=== PATIENT | male | born 1945 | race Caucasian/White ===

== ENCOUNTER 2020-03-24 08:52 | Inpatient (IN) | payer OTHER ==
[~2020-03-24] VITALS: Ht 187.9 cm; Wt 101.0 kg
--- NOTE | 2020-03-24 09:00 | NUR ---
PATIENT GIVES POOR PMH
[2020-03-24 09:17] LABS: BASOPHILS % (AUTO) 1 % (0-10); EOSINOPHILS # (AUTO) 0.1 10^3/uL (0.0-0.3); EOSINOPHILS % (AUTO) 2 % (0-10); HEMATOCRIT 45 % (40-54); HEMOGLOBIN 14.6 G/DL (13.3-17.7); LYMPHOCYTES # (AUTO) 0.9 X 10^3 (1.0-4.0); LYMPHOCYTES % (AUTO) 20 % (12-44); MEAN CORPUSCULAR HEMOGLOBIN 32 PG (25-34); MEAN CORPUSCULAR HGB CONC 33 G/DL (32-36); MEAN CORPUSCULAR VOLUME 98 FL (80-99); MONOCYTES # (AUTO) 0.4 X 10^3 (0.0-1.0); MONOCYTES % (AUTO) 9 % (0-12); NEUTROPHILS # (AUTO) 2.9 X 10^3 (1.8-7.8); NEUTROPHILS % (AUTO) 68 % (42-75); PLATELET COUNT 128 10^3/uL (130-400); RED CELL DISTRIBUTION WIDTH 13.6 % (10.0-14.5); WHITE BLOOD COUNT 4.2 10^3/uL (4.3-11.0)
--- OUTSIDE RECORDS SUMMARY | 2020-03-24 09:19 | XMS REPORT | CCD ---
Author Author BOBY BRANNON Organization Unknown Address [address] [place] [address] Care Team Providers Care International Marketing Intern Name Role Phone ALLENCULLINS PHYS, RONNY ER Attphys ALLENCULLINS PHYS, RONNY ER Prisurg Allergies Unknown or Not Available. Active Medications Unknown or Not Available. Problems Unknown or Not Available. Procedures Procedure Code Procedure Type Date CX CHEST [address] 02/21/2017 UA ROUTINE C&S IF IND 291447949 SNOMED CT 10/[address] 02/21/2017 SED RATE 783391961 SNOMED CT 02/21/2017 C REACTIVE PROTEIN 99269824 SNOMED CT 017 COMPREHENSIVE METABOLIC PANEL 481055887 SNOMED CT 02/21/2017 CBC W/ AUTO DIFF (RFLX MAN DIFF IF IND) 4450502 [facility] 02/21/2017 ^UA AUTO DIPSTICK ONLY 530686570 SNOMED CT 10/2016 ^CBC W/AUTO DIFF 4803531 SNOMED CT 7 Results COMPREHENSIVE METABOLIC PANEL - Collect Date/Time: 02/21/2017 15:30 Test Name Code Test Result Test Units Marielle t Ref Range GLUCOSE 2345-7 119 MG/DL L=70 H=1 00 SODIUM 2951-2 138 MEQ/L L=135 H=14 8 POTASSIUM 2823-3 4.0 MEQ/L L=3.5 H =5.3 CHLORIDE 2075-0 103 MEQ/L L=96 H= 110 CO2 2028-9 26 MEQ/L L=22 H=29 BUN 3094-0 16 MG/DL L=8 H=22 CREATININE 2160-0 1.1 MG/DL L=0.6 H=1.6 SGOT/AST 1920-8 16 IU/L L=10 H= 40 SGPT/ALT 1742-6 16 IU/L L=8 H= 54 ALK PHOS 6768-6 86 IU/L L=35 H= 115 TOTAL PROTEIN 2885-2 6.7 G/DL L=5.5 H=8.5 ALBUMIN 1751-7 3.7 G/DL L=3.1 H=5 .4 TOTAL BILI 1975-2 1.1 MG/DL L=0.0 H=1.5 CALCIUM 22090-1 8.7 MG/DL L=8.2 H= 10.6 AGE 71 yrs GFR NonAA 66 GFR AA 80 eGFR >60 N/A eGFR AA* >60 N/A CBC W/ AUTO DIFF (RFLX MAN DIFF IF IND) - Collect Date/Time: 02/21/2017 15:30 Test Name Code Test Result Test Units Marielle t Ref Range WBC 94803-5 6.0 TH/CMM L=4.5 H=1 0.8 RBC 789-8 4.62 ML/CMM L=4.70 H=6. 10 HGB 718-7 14.3 G/DL L=14.0 H=18 .0 HCT 4544-3 44.6 % L=42.0 H=52 .0 MCV 97 FL L=81 H=99 MCH 31.0 PG L=27.0 H=33 .0 MCHC 32.1 G/DL L=31.0 H=36 .0 RDW SD 50 FL L=36 H=50 RDW CV 14.2 % L=0.0 H=14 .8 MPV 9.3 FL L=9.3 H=12 .5 PLT 777-3 118 TH/CMM L=130 H=44 0 NRBC# 0.00 TH/CMM L=0.00 H=0. 00 NRBC% 0.0 /100WBC L=0.0 H=2 .0 %NEUT 77.5 % %LYMP 12.5 % %MONO 9.0 % %EOS 0.5 % %BASO 0.3 % #NEUT 4.66 TH/CMM L=2.10 H=8. 20 #LYMP 0.75 TH/CMM L=0.90 H=5. 20 #MONO 0.54 TH/CMM L=0.16 H=1. 00 #EOS 0.03 TH/CMM L=0.00 H=0. 80 #BASO 0.02 TH/CMM L=0.00 H=0. 20 MANUAL DIFF NOT IND N/A SED RATE - Collect Date/Time: 02/21/2017 15:30 Test Name Code Test Result Test Units Marielle t Ref Range SEDRATE 4537-7 35 MM/HR L=0 H=2 0 PROTIME - Collect Date/Time: 02/21/2017 15:30 Test Name Code Test Result Test Units Marielle t Ref Range PROTIME 5964-2 21.8 SEC L=9.9 H=1 1.9 INR 28958-2 1.9 UA ROUTINE C&S IF IND - Collect Date/Rogelio e: 02/21/2017 16:10 Test Name Code Test Result Test Units Marielle t Ref Range COLOR YELLOW N/A NL: YELLOW APPEARANCE CLEAR N/A NL: CLEAR SPEC GRAV 1.010 N/A NL: 1.002 - 1.022 pH 5.5 N/A NL: 5 - 9 PROTEIN NEGATIVE N/A NL: NEGATIVE mg/dl GLUCOSE NEGATIVE N/A NL: NEGATIVE mg/dl KETONE NEGATIVE N/A NL: NEGATIVE mg/dl BILIRUBIN NEGATIVE N/A NL: NEGATI VE BLOOD NEGATIVE N/A NL: NEGATIVE NITRITE NEGATIVE N/A NL: NEGATIVE LEUK SCREEN NEGATIVE N/A NL: NEGA TIVE MICRO INDICATED? NOT INDICATED N/A BNP - Collect Date/Time: 02/21/2017 15:3 0 Test Name Code Test Result Test Units Marielle t Ref Range BNP 14908-6 57 PG/ML L=0 H=1 00 C REACTIVE PROTEIN - Collect Date/Time: 02/21/2017 15:30 Test Name Code Test Result Test Units Marielle t Ref Range C REACTIVE PROTEIN 1988-5 11.1 MG/DL L=0 .0 H=1.0 Function Status Unknown or Not Available. History of Immunizations Unknown or Not Available. Plan of Treatment Unknown or Not Available. Social History Smoking Status Code Start Date End Date Never smoker [id number] Vital Signs Unknown or Not Available. Function Status Unknown or Not Available. Goals Unknown or Not Available. ASSESSMENTS Unknown or Not Available. Health Concerns Section Unknown or Not Available.
--- OUTSIDE RECORDS SUMMARY | 2020-03-24 09:19 | XMS REPORT ---
Author Author Kodi Braun [facility] Address [address] [place], [place] [address] Care Team Providers Care Tree Thinner Name Role Phone Jocelin Braun PCP Allergies and Adverse Reactions Name Reaction Notes pantoprazole budesonide Plan of Treatment Not available. Medications Active Name Start Date Estimated Completion Date SIG Co mments Flomax 0.4 mg oral capsule take 1 capsule (0.4 mg) by oral route once daily 1/2 hour following the same meal each day acyclovir 400 mg oral tablet keegan e 1 tablet (400 mg) by oral route 2 times per day warfarin 7.5 mg oral tablet take 1 tablet (7.5 mg) by oral route once daily lorazepam 0.5 mg oral tablet keegan e 1 tablet (0.5 mg) by oral route 2 times per day as needed mirtazapine 45 mg oral tablet ta ke 1 tablet (45 mg) by oral route once daily before bedtime Anoro Ellipta 62.5-25 mcg/actuation inhalation blister with jeet ce inhale 1 puff by inhalation route once daily at the same time each day ipratropium-albuterol 0.5 mg-3 mg(2.5 mg base)/3 mL inhalation solution for nebulization 02/11/2020 07/10/2020 inhale 3 milliliters by nebulization route 4 times per day for 30 days Discontinued Name Start Date Discontinued Date SIG Comments amitriptyline 10 mg oral tablet 02/11/2020 take 1 tablet (10 mg) by oral route once daily at bedtime albuterol sulfate 0.63 mg/3 mL inhalation solution for nebulizat ion 02/11/2020 use in nebulizer as directed 4 times a day Problem List Description Status Onset COPD (chronic obstructive pulmonary disease) Active 02/11/2020 BPH (benign prostatic hyperplasia) Active 2019 Pulmonary emboli Active 02/11/2020 Herpes Active 02/11/2020 Anxiety Active 02/11/2020 Unintended weight gain Active 02/11/2020 Preventative health care Active 02/11/2020 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 Vital Signs Date Time BP-Sys(mm[Hg] BP-Caitlyn(mm[Hg]) HR(bpm) RR(rpm) Temp WT HT HC BMI BSA BMI Percentile O2 Sat(%) 02/11/2020 12:54:00 PM 138 mm[Hg] 80 mm[Hg] 92 {beats}/min 18 rpm 98.1 F 220 lbs 74 in 28.246 kg/m2 2.2826 m2 93 % 10/03/2019 3:17:00 PM 130 mm[Hg] 70 mm[Hg] 67 {beats}/min 24 rpm 97.9 F 209 lbs 74 in 26.83 kg/m2 2.22 m2 95 % Social History Name Description Comments Tobacco Former smoker Oxygen History of Procedures Date Ordered Description Order Status 10/03/2019 12:00 AM URINALYSIS AUTO W/SCOPE Reviewed 10/23/2019 12:00 AM CYSTOSCOPY Reviewed 02/11/2020 1:05 PM FALL RISK ASSESSMENT DOCD Reviewed 02/11/2020 1:05 PM SCREEN DEPRESSION PERFORMED Reviewed Results Summary Date and Description Results 10/03/2019 5:18 PM COLOR Light-Yellow CLARITY C lear SPEC GRAV 1.025 pH 5.5 PROTEIN Negative GLUCOSE Normal KETONE Negative BILIRUBIN Negative BLOOD Negative NITRITE Negative LEUK SCREEN Negative RBC/HPF RARE CULT SET UP? NO 02/11/2020 1:05 PM Falls in last 6 months? No U nsteady or worry about falling? No Fall Risk Assessment Not At Risk During the past month, have you been feeling depressed? No During the past month, have you lost interest in usual activity? No History Of Immunizations Not available. History of Past Illness Name Date of Onset Comments COPD PE (pulmonary embolism) Pulmonary venous thrombosis Dysphagia Deviated Nasal Septum Umbilical hernia Basal cell carcinoma Herpes Cellulitis Anxiety Insomnia Jaundice Collapsed lung COPD (chronic obstructive pulmonary disease) 02/11/2020 BPH (benign prostatic hyperplasia) 02/11/2020 Pulmonary emboli 02/11/2020 Herpes 02/11/2020 Anxiety 02/11/2020 Unintended weight gain 02/11/2020 Preventative health care 02/11/2020 End stage COPD 02/11/2020 Burning with urination Oct 03 2019 3:19PM Splitting, urinary stream Oct 03 2019 3:19PM Dehydration Oct 03 2019 3:19PM Dysuria Oct 23 2019 2:07PM S/P TURP Oct 23 2019 2:07PM COPD (chronic obstructive pulmonary disease) Feb 11 2020 1: 05PM BPH (benign prostatic hyperplasia) Feb 11 2020 1:05PM Pulmonary emboli Feb 11 2020 1:05PM Herpes Feb 11 2020 1:05PM Anxiety Feb 11 2020 1:05PM Unintended weight gain Feb 11 2020 1:05PM Preventative health care Feb 11 2020 1:05PM End stage COPD Feb 11 2020 1:05PM Payers Insurance Name Company Name Plan Name Plan Number Policy Number [place] Group Number Start Date Aetna Aetna [id number] N/A Veterans Administration Veterans Administration [id number] N/A Medicare Part B Medicare Secondary [id number] N/A Medicare Part B Medicare Of [place] [id number] N/A WPS - VAP[employer] - [place] WPS VACAA [id number] N/A History of Encounters Visit Date Visit Type Provider 02/11/2020 Office visit Jocelin Braun MD 10/23/2019 Procedures Saeid Sosa MD 10/03/2019 Office visit Seaid Sosa MD 06/24/2019 Hospital Junito Aragon MD 05/14/2019 Hospital Junito Aragon MD 07/22/2018 Hospital Junito Aragon MD
--- OUTSIDE RECORDS SUMMARY | 2020-03-24 09:20 | XMS REPORT ---
Author Author Kodi Braun [facility] Address [address] [place], [place] [address] Care Team Providers Care Rate Inserter Name Role Phone Jocelin Braun PCP Allergies [...] Active 02/11/2020 Preventative health care Active 02/11/2020 Vital Signs Date Time BP-Sys(mm[Hg] [...] weight gain 02/11/2020 Preventative health care 02/11/2020 Burning with urination Oct 03 2019 [...] Preventative health care Feb 11 2020 1:05PM Payers Insurance Name Company Name Plan Name Plan Number Policy Number [place] Group Number Start Date Aetna Aetna [id number] N/A Veterans Administration Veterans Administration [id number] N/A Medicare Part B Medicare Secondary [id number] N/A Medicare Part B Medicare Of [place] [id number] N/A WPS - VAPCCC - [place]s Choice WPS VACAA [id number] N/A History of Encounters Visit Date Visit Type Provider 02/11/2020 Office visit Jocelin Braun MD 10/23/2019 Procedures Saeid Sosa MD 10/03/2019 Office visit Saeid Sosa MD 06/24/2019 Hospital Junito Aragon MD 05/14/2019 Hospital Junito Aragon MD 07/22/2018 Hospital Junito Aragon MD
--- OUTSIDE RECORDS SUMMARY | 2020-03-24 09:20 | XMS REPORT ---
Author Author Kodi Braun [facility] Address [address] [place], [place] [address] Care Team Providers Care Forge Helper Name Role Phone Jocelin Braun PCP Allergies [...] by oral route once daily before bedtime albuterol sulfate 0.63 mg/3 mL inhalation solution for nebulizat ion use in nebulizer as directed 4 times a day Anoro Ellipta 62.5-25 mcg/actuation inhalation blister with jeet ce inhale 1 puff by inhalation route once daily at the same time each day Discontinued Name Start Date Discontinued Date SIG Comments amitriptyline 10 mg oral tablet 02/11/2020 take 1 tablet (10 mg) by oral route once daily at bedtime Problem List Not available. Vital Signs Date Time BP-Sys(mm[Hg] BP-Caitlyn(mm[Hg]) HR(bpm) [...] Negative RBC/HPF RARE CULT SET UP? NO History Of Immunizations Not available. History of Past Illness Name Date of Onset Comments COPD PE (pulmonary embolism) Pulmonary venous thrombosis Dysphagia Deviated Nasal Septum Umbilical hernia Basal cell carcinoma Herpes Cellulitis Anxiety Insomnia Jaundice Collapsed lung Burning with urination Oct 03 2019 3:19PM Splitting, urinary stream Oct 03 2019 3:19PM Dehydration Oct 03 2019 3:19PM Dysuria Oct 23 2019 2:07PM S/P TURP Oct 23 2019 2:07PM Payers Insurance Name Company Name Plan Name Plan Number Policy Number [place] Group Number Start Date Aetna Aetna [id number] N/A Veterans Administration Veterans Administration [id number] N/A Medicare Part B Medicare Secondary [id number] N/A Medicare Part B Medicare Of [place] [id number] N/A WPS - VAPCCC - [place]'s Choice WPS VACAA [id number] N/A History of Encounters Visit Date Visit Type Provider 02/11/2020 Office visit Jocelin Braun MD 10/23/2019 Procedures Saeid Sosa MD 10/03/2019 Office visit Saeid Sosa MD 06/24/2019 Hospital Junito Aragon MD 05/14/2019 Hospital Junito Aragon MD 07/22/2018 Hospital Junito Aragon MD
--- OUTSIDE RECORDS SUMMARY | 2020-03-24 09:20 | XMS REPORT ---
Author Author Kodi Sosa Organization [facility] Address [address] [place], [place] [address] Care Team Providers Care Composing Room Machinist Name Role Phone Saeid Sosa PCP Allergies and Adverse Reactions Name Reaction [...] route 2 times per day as needed amitriptyline 10 mg oral tablet take 1 tablet (10 mg) by oral route once daily at bedtime Problem List Not available. Vital Signs Date Time BP-Sys(mm[Hg] BP-Caitlyn(mm[Hg]) HR(bpm) RR(rpm) Temp WT HT HC BMI BSA BMI Percentile O2 Sat(%) 10/03/2019 3:17:00 PM 130 mm[Hg] 70 mm[Hg] 67 {beats}/min 24 rpm 97.9 F 209 lbs 74 in 26.8337 kg/m2 2.2248 m2 95 % Social History Name Description Comments Tobacco Former smoker Oxygen History of Procedures Date Ordered Description Order Status 10/03/2019 12:00 AM URINALYSIS AUTO W/SCOPE Reviewed 10/23/2019 12:00 AM CYSTOSCOPY Reviewed Results Summary Date and Description Results [...] venous thrombosis Dysphagia Deviated Nasal Septum Umbilical Hernia Basal cell carcinoma Herpes Cellulitis Anxiety Insomnia Jaundice Burning with urination Oct 03 2019 3:19PM Splitting, urinary stream Oct 03 2019 3:19PM Dehydration Oct 03 2019 3:19PM Dysuria Oct 23 2019 2:07PM S/P TURP Oct 23 2019 2:07PM Payers Insurance Name Company Name Plan Name Plan Number Policy Number [place] Group Number Start Date WPS - VAPCCC - [place]'s Choice WPS VACAA [id number] N/A Veterans Administration Veterans Administration 35 [id number] N/A Medicare Part B Medicare Secondary [id number] N/A Medicare Part B Medicare Of [place] [id number] N/A History of Encounters Visit Date Visit Type Provider 10/23/2019 Procedures Saeid Sosa MD 10/03/2019 Office visit Saeid Sosa MD 06/24/2019 Hospital Junito Aragon MD 05/14/2019 Hospital Junito Aragon MD 07/22/2018 Hospital Junito Aragon MD
[2020-03-24 09:26] LABS: ALBUMIN 3.7 GM/DL (3.2-4.5); CHLORIDE 105 MMOL/L (98-107); POTASSIUM 4.9 MMOL/L (3.6-5.0); SODIUM 141 MMOL/L (135-145)
[2020-03-24 09:28] LABS: CALCIUM 8.7 MG/DL (8.5-10.1)
[2020-03-24 09:29] LABS: GLUCOSE 98 MG/DL (70-105); INR 1.6 (0.8-1.4); PROTHROMBIN TIME PATIENT 19.4 SEC (12.2-14.7)
[2020-03-24 09:30] LABS: CARBON DIOXIDE 28 MMOL/L (21-32)
[2020-03-24 09:31] LABS: BILIRUBIN,TOTAL 0.7 MG/DL (0.1-1.0)
[2020-03-24 09:32] LABS: ALKALINE PHOSPHATASE 99 U/L (40-136); CREATININE SERUM 1.12 MG/DL (0.60-1.30); GFR ESTIMATED > 60
[2020-03-24 09:33] LABS: BUN/CREATININE RATIO 15
[2020-03-24 09:35] LABS: BILIRUBIN,URINE NEGATIVE (NEGATIVE); CLARITY,URINE CLEAR; COLOR,URINE YELLOW; GLUCOSE, URINE (UA) NEGATIVE (NEGATIVE); KETONES,URINE NEGATIVE (NEGATIVE); LEUKOCYTE ESTERASE ,URINE NEGATIVE (NEGATIVE); NITRITE,URINE NEGATIVE (NEGATIVE); PROTEIN,URINE NEGATIVE (NEGATIVE)
[2020-03-24 09:35] LABS: ALANINE AMINOTRANSFERASE 19 U/L (0-55)
[2020-03-24] MEDS ORDERED: RT-ALBUTEROL/IPRATROPIUM 3 ML (DUONEB) VIAL INH ONE (09:45)
--- NOTE | 2020-03-24 09:46 | NUR ---
MED LIST TO CHART.
[2020-03-24 09:53] LABS: BACTERIA,URINE NEGATIVE /HPF; SQUAMOUS EPITHELIAL CELL,UR 0-2 /HPF; URINE OTHER FEW SPERM /HPF
--- NOTE | 2020-03-24 09:55 | ED General ---
General Chief Complaint: Respiratory Problems Stated Complaint: COPD Nursing Triage Note: AMB TO ROOM FROM DR CHAMORRO OFFICE CONCERN THAT SA02 IN LOW 90"S AND 80'S INCREASED 02 TO 5 LITERS. ON ADMIT SA02 95% ON 5L . PATIENT REPORTS A ICREASE IN SOA AFTER STARTING SLEEP MEDS. Nursing Sepsis Screen: No Definite Risk Source of Information: Patient Exam Limitations: No Limitations History of Present Illness Date Seen by Provider: Mar 24, 2020 Time Seen by Provider: 09:15 Initial Comments Here with report of increasing shortness of air. Seen at Dr. Fry's office today and noted to have O2 sat in the 70s on room air. He was off his normal 3 L via nasal cannula but states usually is able to do just fine without it if he is at rest. He was placed on O2 at 5 L via nasal cannula but had desaturations with even minimal talking. He was sent to the emergency department for further evaluation. Patient is concerned because he started sleeping pill a few months ago and it can have problems with breathing. He is worried that this may be affecting his breathing. Reports that his fine during the day and doesn't really know at nighttime. It does help him with sleep. Patient does not really know his medicines. Denies fever or chills. Denies upper respiratory symptoms but does complain of allergies. States that he was out very quickly with any activity. Used to smoke but does not anymore. Timing/Duration: 1 Week, Getting Worse Severity: Moderate, Severe Associated Systoms: No Chest Pain; Cough; No Fever/Chills, No Malaise, No Nausea/Vomiting; Shortness of Air; No Weakness Allergies and Home Medications Allergies Coded Allergies: No Known Drug Allergies (Unverified , 03/24/20) Patient Home Medication List Home Medication List Reviewed: Yes Review of Systems Review of Systems Constitutional: see HPI; No chills, No fever EENTM: nose congestion; No ear pain, No mouth pain, No throat pain Respiratory: cough, short of breath Cardiovascular: No chest pain, No edema Gastrointestinal: No nausea, No vomiting Genitourinary: no symptoms reported Musculoskeletal: no symptoms reported Skin: no symptoms reported Psychiatric/Neurological: Anxiety; Denies Headache Hematologic/Lymphatic: No Symptoms Reported All Other Systems Reviewed Negative Unless Noted: Yes Past Sgpirec-Zrzkni-Zisafi Hx Past Med/Social Hx: Reviewed Nursing Past Med/Soc Hx Patient Social History Alcohol Use: Denies Use Recreational Drug Use: No Smoking Status: Former Smoker Recent Foreign Travel: No Contact w/Someone Who Travel: No Recent Infectious Disease Expo: No Past Medical History Surgeries: Yes (lung surgery) Appendectomy, Tonsillectomy Respiratory: Yes COPD Cardiac: No Neurological: No Genitourinary: Yes Benign Prostatic Hyperpl Gastrointestinal: No Musculoskeletal: No Endocrine: No Family Medical History Reviewed Nursing Family Hx Physical Exam-Suspected Sepsis Physical Exam Vital Signs Vital Signs - First Documented Capillary Refill : Less Than 3 Seconds Blood Pressure Mean: 100 Height, Weight, BMI Height: '" Weight: lbs. oz. kg; 28.00 BMI Method: General Appearance: WD/WN, Mild Distress HEENT: PERRL/EOMI, Pharynx Normal Neck: Non Tender, Supple Respiratory: Accessory Muscle Use, Decreased Breath Sounds, Wheezing Cardiovascular: Regular Rate, Rhythm, No Murmur Gastrointestinal: Non Tender, Soft Back: Normal Inspection, No CVA Tenderness, No Vertebral Tenderness Extremity: Normal Range of Motion, Non Tender Neurologic/Psychiatric: Alert, Oriented x3 Skin: normal color, warm/dry Focused Exam Lactate Level 03/24/20 09:25: Lactic Acid Level 0.93 Lactic Acid Level Laboratory Tests Test 03/24/20 09:25 Lactic Acid Level 0.93 MMOL/L (0.50-2.00) Progress/Results/Core Measures Suspected Sepsis Recent Fever Within 48 Hours: No Infection Criteria Present: None New/Unexplained Altered Menta: No Sepsis Screen: No Definite Risk SIRS Temperature: Pulse: 65 Respiratory Rate: 18 Laboratory Tests 03/24/20 09:11: White Blood Count 4.2L Blood Pressure 144 /79 Mean: 100 03/24/20 09:25: Lactic Acid Level 0.93 Laboratory Tests 03/24/20 09:11: Creatinine 1.12, INR Comment 1.6H, Platelet Count 128L, Total Bilirubin 0.7 Results/Orders Lab Results Laboratory Tests Test 03/24/20 09:11 03/24/20 09:25 03/24/20 09:29 Range/Units White Blood Count 4.2 L 4.3-11.0 10^3/uL Red Blood Count 4.56 4.35-5.85 10^6/uL Hemoglobin 14.6 13.3-17.7 G/DL Hematocrit 45 40-54 % Mean Corpuscular Volume 98 80-99 FL Mean Corpuscular Hemoglobin 32 25-34 PG Mean Corpuscular Hemoglobin Concent 33 32-36 G/DL Red Cell Distribution Width 13.6 10.0-14.5 % Platelet Count 128 L 130-400 10^3/uL Mean Platelet Volume 10.0 7.4-10.4 FL Neutrophils (%) (Auto) 68 42-75 % Lymphocytes (%) (Auto) 20 12-44 % Monocytes (%) (Auto) 9 0-12 % Eosinophils (%) (Auto) 2 0-10 % Basophils (%) (Auto) 1 0-10 % Neutrophils # (Auto) 2.9 1.8-7.8 X 10^3 Lymphocytes # (Auto) 0.9 L 1.0-4.0 X 10^3 Monocytes # (Auto) 0.4 0.0-1.0 X 10^3 Eosinophils # (Auto) 0.1 0.0-0.3 10^3/uL Basophils # (Auto) 0.0 0.0-0.1 10^3/uL Prothrombin Time 19.4 H 12.2-14.7 SEC INR Comment 1.6 H 0.8-1.4 Activated Partial Thromboplast Time 30 24-35 SEC Sodium Level 141 135-145 MMOL/L Potassium Level 4.9 3.6-5.0 MMOL/L Chloride Level 105 98-107 MMOL/L Carbon Dioxide Level 28 21-32 MMOL/L Anion Gap 8 5-14 MMOL/L Blood Urea Nitrogen 17 7-18 MG/DL Creatinine 1.12 0.60-1.30 MG/DL Estimat Glomerular Filtration Rate > 60 BUN/Creatinine Ratio 15 Glucose Level 98 70-105 MG/DL Calcium Level 8.7 8.5-10.1 MG/DL Corrected Calcium 8.9 8.5-10.1 MG/DL Total Bilirubin 0.7 0.1-1.0 MG/DL Aspartate Amino Transf (AST/SGOT) 32 5-34 U/L Alanine Aminotransferase (ALT/SGPT) 19 0-55 U/L Alkaline Phosphatase 99 40-136 U/L Total Protein 7.0 6.4-8.2 GM/DL Albumin 3.7 3.2-4.5 GM/DL Lactic Acid Level 0.93 0.50-2.00 MMOL/L Urine Color YELLOW Urine Clarity CLEAR Urine pH 6.0 5-9 Urine Specific [place] 1.015 L 1.016-1.022 Urine Protein NEGATIVE NEGATIVE Urine Glucose (UA) NEGATIVE NEGATIVE Urine Ketones NEGATIVE NEGATIVE Urine Nitrite NEGATIVE NEGATIVE Urine Bilirubin NEGATIVE NEGATIVE Urine Urobilinogen 0.2 < = 1.0 MG/DL Urine Leukocyte Esterase NEGATIVE NEGATIVE Urine RBC (Auto) NEGATIVE NEGATIVE Urine RBC NONE /HPF Urine WBC NONE /HPF Urine Squamous Epithelial Cells 0-2 /HPF Urine Crystals NONE /LPF Urine Bacteria NEGATIVE /HPF Urine Casts NONE /LPF Urine Mucus NEGATIVE /LPF Urine Other FEW SPERM H /HPF Urine Culture Indicated CULTURE PENDING My Orders Orders - DEJA NEWBERRY MD Cbc With Automated Diff (03/24/20 08:55) Comprehensive Metabolic Panel (03/24/20 08:55) Blood Culture (03/24/20 08:55) Sputum Culture (03/24/20 08:55) Urinalysis (03/24/20 08:55) Urine Culture (03/24/20 08:55) Protime With Inr (03/24/20 08:55) Partial Thromboplastin Time (03/24/20 08:55) Chest 1 View, Ap/Pa Only (03/24/20 08:55) Ed Iv/Invasive Line Start (03/24/20 08:55) Vital Signs Adult Sepsis Patie Q15M (03/24/20 08:55) O2 (03/24/20 08:55) Remove Rings In Anticipation O (03/24/20 08:55) Lactic Acid Analyzer (03/24/20 08:55) Albuterol/Ipra Inhalation Soln (Duoneb I (03/24/20 09:45) Svn Small Volume Nebulizer (03/24/20 09:39) Azithromycin Injection (Zithromax Inject (03/24/20 11:04) Ceftriaxone For Iv Use (Rocephin For I (03/24/20 11:04) Methylprednisolone Sod Succ (Solu-Medrol (03/24/20 11:15) Medications Given in ED Current Medications Medications Dose Ordered Sig/Jada Route Start Time Stop Time Status Last Admin Dose Admin Albuterol/ Ipratropium 3 ml ONCE ONCE INH 03/24/20 09:45 03/24/20 09:46 DC 03/24/20 09:47 3 ML Methylprednisolone Sodium Succinate 125 mg ONCE ONCE IVP 03/24/20 11:15 03/24/20 11:16 DC 03/24/20 11:21 125 MG Vital Signs/I&O 03/24/20 03/24/20 03/24/20 03/24/20 08:54 08:54 09:45 11:54 Temp 36.8 Pulse 65 65 Resp 18 18 B/P (MAP) 144/79 (100) 151/85 Pulse Ox 95 95 95 95 O2 Delivery Nasal Cannula Nasal Cannula Nasal Cannula Nasal Cannula O2 Flow Rate 5.00 5.00 6.00 5.00 Capillary Refill : Less Than 3 Seconds Blood Pressure Mean: 100 Progress Note : Progress Note Seen and evaluated. IV, labs, UA, blood cultures, lactic acid and chest x-ray ordered. Duo neb ordered. This did seem to help a little bit. Monitor patient. 1010: Patient noted to have right lower lobe pneumonia. Improved after treatments. Patient will require admission for continuation of care. I did discuss the case with Dr. Abreu and she accepts patient for admission, inpatient status. I did discuss the case with Dr. Fry and he will see the patient in consult. We will initiate pneumonia protocol with Rocephin and azithromycin and give Solu-Medrol 125 mg IV now and continue on admission. Discussed with patient who agrees with plan. Diagnostic Imaging Diagonstic Imaging: Xray Plain Films/CT/US/NM/MRI: chest Comments [facility]. [place], [place] NAME: BOBY KHAN [facility] REC#: [id number] PT STATUS: REG ER : 1945 PHYSICIAN: DEJA NEWBERRY MD ADMIT DATE: 03/24/20/ER Draft Date of Exam:03/24/20 CHEST 1 VIEW, AP/PA ONLY Portable erect AP chest at 940 hours. INDICATION: Shortness of breath. There are no prior studies available for comparison. FINDINGS: The heart size is within normal limits. There are alveolar/interstitial pulmonary infiltrates superimposed on the underlying chronic pulmonary changes involving the right lung base and the left perihilar region. It is possible that these abnormal densities could be chronic in nature. If previous studies are available they would be helpful for comparison. There is also a large bulla occupying much of the right upper lung. The left upper lung is generally clear. The mediastinum is not widened. The osseous structures are intact. IMPRESSION: There are chronic pulmonary changes present as well as abnormal alveolar/interstitial infiltrates in the right lung base and left perihilar region. Whether these findings are related to acute pneumonia/atelectasis or whether they are chronic in nature is not certain, however. If previous studies are available, they would be helpful for comparison. If there are no prior exams, then a follow-up PA and lateral chest would be recommended for further study. Dictated on workstation # [id number] Dict: 03/24/20 1017 Trans: 03/24/20 1022 [id number] Interpreted by: ELYSIA THAYER MD Electronically signed by: Departure Communication (Admissions) Time/Spoke to Admitting Phy: 11:11 Time/Spoke to Consulting Phy: 11:05 Impression Primary Impression: Pneumonia Qualified Codes: J18.1 - Lobar pneumonia, unspecified organism Additional Impression: COPD (chronic obstructive pulmonary disease) Qualified Codes: J44.0 - Chronic obstructive pulmonary disease with (acute) lower respiratory infection Disposition: ADMITTED INPATIENT Condition: Stable Admissions Decision to Admit Reason: Admit from ER (General) Decision to Admit/Date: Mar 24, 2020 Time/Decision to Admit Time: 11:05 DEJA NEWBERRY MD Mar 24, 2020 09:55
--- NOTE | 2020-03-24 10:22 | Diagnostic Imaging Report ---
Portable erect AP chest at 940 hours. INDICATION: Shortness of breath. There are no prior studies available for comparison. FINDINGS: The heart size is within normal limits. There are alveolar/interstitial pulmonary infiltrates superimposed on the underlying chronic pulmonary changes involving the right lung base and the left perihilar region. It is possible that these abnormal densities could be chronic in nature. If previous studies are available they would be helpful for comparison. There is also a large bulla occupying much of the right upper lung. The left upper lung is generally clear. The mediastinum is not widened. The osseous structures are intact. IMPRESSION: There are chronic pulmonary changes present as well as abnormal alveolar/interstitial infiltrates in the right lung base and left perihilar region. Whether these findings are related to acute pneumonia/atelectasis or whether they are chronic in nature is not certain, however. If previous studies are available, they would be helpful for comparison. If there are no prior exams, then a follow-up PA and lateral chest would be recommended for further study. Dictated by: Dictated on workstation # [id number]
[2020-03-24] MEDS ORDERED: AZITHROMYCIN INJECTION 500 MG in NS (IVPB) 250 ML IV STA (11:04)
[2020-03-24] MEDS ORDERED: cefTRIAXone FOR IV USE 1,000 MG in WATER (STERILE) FOR INJECTION 10 ML IV STA (11:04)
[2020-03-24] MEDS ORDERED: methylPREDNISolone 125 MG (Solu-MEDROL) VIAL IVP ONE (11:15)
--- NOTE | 2020-03-24 11:33 | History & Physical-Hospitalist ---
History of Present Illness HPI/Chief Complaint Pt is a 74yoCM with a PMH of COPD, DVT, and PNA who presented to the ER due to hypoxia. He follows with Dr Fry and scheduled an appointment with him for today due to 2 months long history of dyspnea. He normally wears 3lpm of oxygen and took it off to go in to his visit. He was found to have oxygen saturations in the 70s. His oxygen was increased to 5lpm which held him in the low 90s at rest but he dropped even with conversation. He was sent to the ER for evaluation. He was found to have a right sided pneumonia. Source: patient Date Seen 03/24/20 Time Seen by a Provider: 11:28 Attending Physician Bridget Abreu PCP Referring Physician Date of Admission Home Medications & Allergies Home Medications Reviewed patient Home Medication Reconciliation performed by pharmacy medication reconciliations electronic bench technician and/or nursing. Patients Allergies have been reviewed. Allergies Allergies Coded Allergies No Known Drug Allergies (Unverified03/24/20) Past Akpswio-Cvliuu-Ntitdu Hx Past Med/Social Hx: Reviewed Nursing Past Med/Soc Hx Patient Social History Marrital Status: Alcohol Use: Denies Use Recreational Drug Use: No Smoking Status: Former Smoker Recent Foreign Travel: No Contact w/other who traveled: No Recent Infectious Disease Expo: No Past Medical History Surgeries: Appendectomy, Tonsillectomy Respiratory: COPD, Sleep Apnea Genitourinary: Benign Prostatic Hyperpl History of Blood Disorders: Yes (DVT) Family History Reviewed Nursing Family Hx Review of Systems Constitutional: No chills, No fever EENTM: no symptoms reported Respiratory: dyspnea on exertion; No orthopnea; short of breath Cardiovascular: No chest pain Gastrointestinal: No abdominal pain, No constipation, No diarrhea, No nausea, No vomiting Genitourinary: No decreased output, No dysuria, No frequency Musculoskeletal: no symptoms reported Skin: no symptoms reported Psychiatric/Neurological: No Symptoms Reported, Anxiety Physical Exam Physical Exam Vital Signs Vital Signs - First Documented Capillary Refill : Less Than 3 Seconds Height, Weight, BMI Height: '" Weight: lbs. oz. kg; 28.00 BMI Method: General Appearance: No Apparent Distress, Chronically ill HEENT: PERRL/EOMI, Moist Mucous Membranes; No Scleral Icterus (L), No Scleral Icterus (R) Neck: Normal Inspection, Supple Respiratory: No Accessory Muscle Use, Decreased Breath Sounds, Other (on 6lpm) Cardiovascular: Regular Rate, Rhythm, No Murmur Gastrointestinal: Normal Bowel Sounds, Non Tender, Soft Extremity: No Calf Tenderness, No Pedal Edema Neurologic/Psychiatric: Alert, Oriented x3, Normal Mood/Affect Skin: Other (hemosiderin staining of bilateral lower extremities- L>R- pt reports chronic) Results Results/Procedures Labs Laboratory Tests 03/24/20 09:11 Patient resulted labs reviewed. Imaging: Reviewed Imaging Report Imaging Date of Exam:03/24/20 CHEST 1 VIEW, AP/PA ONLY Portable erect AP chest at 940 hours. INDICATION: Shortness of breath. There are no prior studies available for comparison. FINDINGS: The heart size is within normal limits. There are alveolar/interstitial pulmonary infiltrates superimposed on the underlying chronic pulmonary changes involving the right lung base and the left perihilar region. It is possible that these abnormal densities could be chronic in nature. If previous studies are available they would be helpful for comparison. There is also a large bulla occupying much of the right upper lung. The left upper lung is generally clear. The mediastinum is not widened. The osseous structures are intact. IMPRESSION: There are chronic pulmonary changes present as well as abnormal alveolar/interstitial infiltrates in the right lung base and left perihilar region. Whether these findings are related to acute pneumonia/atelectasis or whether they are chronic in nature is not certain, however. If previous studies are available, they would be helpful for comparison. If there are no prior exams, then a follow-up PA and lateral chest would be recommended for further study. Assessment/Plan Admission Diagnosis Acute on Chronic Hypoxic Respiratory Failure Admission Status: Inpatient Order (span 2 midnights) Reason for Inpatient Admission: IV abx, steroids, increasing oxygen requirement, high risk for decompensation Assessment and Plan Acute on Chronic Hypoxic Respiratory Failure COPD RLL PNA Not sepsis Continue CAP coverage Pulm consulted, appreciate recs Titrate oxygen as able Continue Steroids Insomnia Started on remeron a few months ago Will hold as he thinks it is making his dyspnea worse H/o of DVT On Warfarin INR 1.6 Check in AM Diagnosis/Problems Diagnosis/Problems (1) COPD (chronic obstructive pulmonary disease) Status: Acute Qualifiers: COPD type: COPD with acute lower respiratory infection Qualified Codes: J44.0 - Chronic obstructive pulmonary disease with (acute) lower respiratory inf ection (2) Acute respiratory failure Status: Acute Qualifiers: Respiratory failure complication: hypoxia Qualified Codes: J96.01 - Acute respiratory failure with hypoxia (3) Insomnia Status: Chronic Qualifiers: Insomnia type: unspecified Qualified Codes: G47.00 - Insomnia, unspecified (4) Pneumonia Status: Acute Qualifiers: Pneumonia type: due to unspecified organism Laterality: right Lung location: lower lobe of lung Qualified Codes: J18.1 - Lobar pneumonia, unspecified organism BRIDGET ABREU MD Mar 24, 2020 11:33
[2020-03-24 12:00] VITALS: BP 145/76
[2020-03-24] MEDS ORDERED: CATHETER FLUSH 10 ML SYR IV PRN (12:30)
[2020-03-24 13:12] VITALS: BP 145/76
[2020-03-24 13:17] VITALS: BP 144/79
[2020-03-24] MEDS: LACTATED RINGERS 1,000 ML IV SCH (13:17)
[2020-03-24] MEDS ORDERED: LORA-404 PO (14:09)
[2020-03-24] MEDS ORDERED: WARF-48 PO ×2 (14:09)
[2020-03-24] MEDS ORDERED: TMSL.4C PO (14:09)
[2020-03-24] MEDS ORDERED: OLOD4MIS2 IH (14:12)
[2020-03-24] MEDS ORDERED: MIRT45TA75 PO ×2 (14:12→14:22)
[2020-03-24] MEDS ORDERED: ALB0.5V INH (14:12)
[2020-03-24] MEDS ORDERED: GLYC30DR4 OU (14:12)
[2020-03-24] MEDS ORDERED: C250T PO (14:14)
[2020-03-24] MEDS ORDERED: CYAN100T3 PO (14:14)
[2020-03-24] MEDS ORDERED: CHOL100048 PO (14:14)
[2020-03-24] MEDS ORDERED: RT-ALBUTEROL/IPRATROPIUM 3 ML (DUONEB) VIAL INH PRN (14:15)
[2020-03-24] MEDS ORDERED: MELA5TAB3 SL ×2 (14:22)
--- NOTE | 2020-03-24 15:47 | NUR ---
SPOKE WITH THE PT (THERE WAS A MED LIST ON HIS CHART) [facility] THE PT SAYS HE TAKES MIRTAZAPINE 45MG AND THE DIRECTIONS SAY 1 TAB HS HOWEVER THE PT TAKES 1 TAB HS BUT IF BY MIDNIGHT HE IS STILL AWAKE HE WILL TAKE ANOTHER TAB HYDROXYZINE 25MG AND [id number] ARE LISTED ON [facility] L[facility] BUT PT IS NO LONGER TAKING THE FOLLOWING ARE FILL DATES: 10-22-2019 ALBUTEROL NEB #360 12-28-2019 ARTIFICIAL TEARS #120 12-28-2019 ACYCLOVIR 400MG #180/90DS 02-20-2020 OLODATEROL2.5/ALBUTEROL #9 02-21-2020 WARFARIN 5MG #39 03-03-2020 MIRTAZAPINE 45MG #90 03-17-2020 FLOMAX 0.4MG #90/90DS 03-21-2020 LORAZEPAM 0.5MG #15 OTC MEDS: VIT C VIT D VIT B12
[2020-03-24] MEDS ORDERED: ACYC400T PO (15:54)
[2020-03-24 16:00] VITALS: BP 152/77
[2020-03-24] MEDS ORDERED: NON-FORMULARY MEDICATION 1 EA EA (Melatonin 5 MG) SL PRN (16:45)
[2020-03-24] MEDS: methylPREDNISolone 40 MG/ML (Solu-MEDROL) VIAL IV SCH ×2 (17:29→23:32)
[2020-03-24] MEDS: warFARin 5 MG (COUMADIN) TAB PO SCH (17:29)
--- NOTE | 2020-03-24 17:32 | NUR ---
TALKED TO PATIENT ABOUT INHALER HOME MEDICATION THAT OUR PHARMACY DOES NOT CARRY. HIS IS HOMEBOUND. HE DOESN'T KNOW IF ANYONE ELSE CAN BRING IT. HE SAID HE WILL BE OKAY WITHOUT IT FOR A FEW DAYS.
[2020-03-24] MEDS: ACYCLOVIR 400 MG TABLET (ZOVIRAX) PO SCH (19:41)
[2020-03-24] MEDS: TAMSULOSIN 0.4 MG (FLOMAX) CAP PO SCH (19:41)
[2020-03-24 20:05] VITALS: BP 150/76
[2020-03-24] MEDS: LORazepam 0.5 MG (ATIVAN) TABLET PO PRN (21:50)
[2020-03-24] MEDS: MELATONIN 10 MG TABLET PO PRN (21:50)
[2020-03-24 23:45] VITALS: BP 143/80
[2020-03-25 03:55] VITALS: BP 139/78
[2020-03-25 05:24] LABS: BASOPHILS % (AUTO) 0 % (0-10); EOSINOPHILS % (AUTO) 0 % (0-10); HEMATOCRIT 44 % (40-54); HEMOGLOBIN 14.7 G/DL (13.3-17.7); LYMPHOCYTES # (AUTO) 0.3 X 10^3 (1.0-4.0); LYMPHOCYTES % (AUTO) 5 % (12-44); MEAN CORPUSCULAR HEMOGLOBIN 32 PG (25-34); MEAN CORPUSCULAR HGB CONC 33 G/DL (32-36); MEAN CORPUSCULAR VOLUME 97 FL (80-99); MEAN PLATELET VOLUME 10.1 FL (7.4-10.4); MONOCYTES # (AUTO) 0.1 X 10^3 (0.0-1.0); MONOCYTES % (AUTO) 1 % (0-12); NEUTROPHILS # (AUTO) 7.1 X 10^3 (1.8-7.8); NEUTROPHILS % (AUTO) 94 % (42-75); PLATELET COUNT 135 10^3/uL (130-400); RED CELL DISTRIBUTION WIDTH 13.6 % (10.0-14.5); WHITE BLOOD COUNT 7.5 10^3/uL (4.3-11.0)
[2020-03-25 05:47] LABS: BAND NEUTROPHILS 2 %; LYMPHOCYTES % (MANUAL) 4 %; MONOCYTES % (MANUAL) 2 %; NEUTROPHILS % (MANUAL) 92 %; RBC MORPH NORMAL
[2020-03-25 05:50] LABS: ALBUMIN 3.5 GM/DL (3.2-4.5); CHLORIDE 107 MMOL/L (98-107); POTASSIUM 4.5 MMOL/L (3.6-5.0); SODIUM 141 MMOL/L (135-145)
[2020-03-25 05:51] LABS: CALCIUM 8.3 MG/DL (8.5-10.1)
[2020-03-25 05:52] LABS: GLUCOSE 144 MG/DL (70-105); TOTAL PROTEIN 6.3 GM/DL (6.4-8.2)
[2020-03-25 05:53] LABS: CARBON DIOXIDE 25 MMOL/L (21-32)
[2020-03-25 05:54] LABS: BILIRUBIN,TOTAL 0.5 MG/DL (0.1-1.0)
[2020-03-25 05:56] LABS: ALKALINE PHOSPHATASE 92 U/L (40-136); CREATININE SERUM 0.88 MG/DL (0.60-1.30); GFR ESTIMATED > 60
[2020-03-25 05:57] LABS: BUN/CREATININE RATIO 18
[2020-03-25 05:59] LABS: ALANINE AMINOTRANSFERASE 15 U/L (0-55)
--- NOTE | 2020-03-25 06:31 | Pulmonary Consultation ---
History of Present Illness History of Present Illness Date Seen by Provider: Mar 25, 2020 Time Seen by Provider: 06:28 Date of Admission Allergies and Home Medications Allergies Coded Allergies: No Known Drug Allergies (Unverified , 03/24/20) Home Medications Acyclovir 400 Mg Tablet, 400 MG PO BID, (Reported) Albuterol Sulfate 2.5 Mg/0.5 Ml Vial.neb, 2.5 MG INH Q6H PRN for SHORTNESS OF BREATH, (Reported) Ascorbic Acid 250 Mg Tab, 250 MG PO DAILY, (Reported) Cholecalciferol (Vitamin D3) 25 Mcg Capsule, 25 MCG PO DAILY, (Reported) Cyanocobalamin 100 Mcg Tablet, 100 MCG PO DAILY, (Reported) Glycerin/Propylene Glycol 30 Ml Drops, 1 DROP OU QID, (Reported) Lorazepam 0.5 Mg Tablet, 0.5 MG PO HS PRN for SLEEP, (Reported) Melatonin 5 Mg Tab.subl, 5 MG SL HS, (Reported) Melatonin 5 Mg Tab.subl, 5 MG SL 0000 PRN for SLEEP, (Reported) Mirtazapine 45 Mg Tablet, 45 MG PO HS, (Reported) Mirtazapine 45 Mg Tablet, 22.2 MG PO 0000 PRN for SLEEP, (Reported) Olodaterol HCl 4 Gm Mist.inhal, 2 PUFF IH DAILY, (Reported) Tamsulosin HCl 0.4 Mg Cap, 0.4 MG PO HS, (Reported) Warfarin Sodium 5 Mg Tablet, 5 MG PO TU,FRI, (Reported) Warfarin Sodium 5 Mg Tablet, 7.5 MG PO SUN,MON,WED,CHASTITY,SAT, (Reported) Past Ndacecg-Yofgoq-Umpizb Hx Past Med/Social Hx: Reviewed Nursing Past Med/Soc Hx Patient Social History Alcohol Use: Denies Use Recreational Drug Use: No Smoking Status: Former Smoker Recent Foreign Travel: No Contact w/Someone Who Travel: No Recent Infectious Disease Expo: No Immunizations Up To Date Date of Pneumonia Vaccine: Jan 22, 2018 Past Medical History Surgeries: Yes (LUNG) Appendectomy, Tonsillectomy Respiratory: Yes COPD Cardiac: No Neurological: No Genitourinary: No Benign Prostatic Hyperpl Gastrointestinal: No Musculoskeletal: Yes (BLOOD CLOTS) Endocrine: No HEENT: No Cancer: No Psychosocial: No Blood Disorders: Yes (DVT) Family Medical History Reviewed Nursing Family Hx Neoplasm 19 FATHER (CANCER-MAYBE LUNG) 19 MOTHER (CANCER-MAYBE WOMEN STUFF) Sepsis Event Evaluation Height, Weight, BMI Height: '" Weight: lbs. oz. kg; 28.60 BMI Method: Exam Exam Vital Signs Date Time Temp Pulse Resp B/P (MAP) Pulse Ox O2 Delivery O2 Flow Rate FiO2 03/25/20 03:55 36.9 66 20 139/78 (98) 92 Nasal Cannula 4.50 03/25/20 01:00 63 03/24/20 23:45 37.0 72 20 143/80 (101) 93 Nasal Cannula 4.00 03/24/20 20:05 37.5 70 20 150/76 (100) 92 Nasal Cannula 4.00 03/24/20 19:15 Nasal Cannula 4.00 03/24/20 19:00 72 03/24/20 16:34 66 03/24/20 16:00 36.8 70 18 152/77 (102) 93 Nasal Cannula 4.00 03/24/20 13:17 36.2 65 95 40 03/24/20 13:12 36.2 65 19 145/76 (99) Nasal Cannula 4.00 94.00 03/24/20 13:09 Nasal Cannula 4.00 03/24/20 12:15 95 Nasal Cannula 4.00 03/24/20 12:00 36.2 65 19 145/76 94 Nasal Cannula 4.00 03/24/20 11:54 65 18 151/85 95 Nasal Cannula 5.00 03/24/20 09:45 95 Nasal Cannula 6.00 03/24/20 08:54 95 Nasal Cannula 5.00 03/24/20 08:54 36.8 65 18 144/79 (100) 95 Nasal Cannula 5.00 I & O 03/25/20 07:00 Intake Total 1610 ml Output Total 800 ml Balance 810 ml Height & Weight Height: '" Weight: lbs. oz. kg; 28.60 BMI Method: General Appearance: WD/WN, Mild Distress HEENT: PERRL/EOMI, Pharynx Normal Neck: Non Tender, Supple Respiratory: Accessory Muscle Use, Decreased Breath Sounds, Wheezing Cardiovascular: Regular Rate, Rhythm, No Murmur Capillary Refill: Less Than 3 Seconds Extremity: Normal Range of Motion, Non Tender Neurologic/Psychiatric: Alert, Oriented x3 Skin: Other (hemosiderin staining of bilateral lower extremities- L>R- pt reports chronic) Results Lab Laboratory Tests 03/24/20 09:11 03/25/20 05:00 Assessment/Plan Assessment/Plan Acute on Chronic Respiratory Failure -Check ABG -Check BNP -Check Echo -check RVP -Check urine strep and legionella ag COPDAE -Solumedrol -Duonebs RLL PNA Continue Abx H/o of DVT On Warfarin INR 1.6 FENG HUANG DO Mar 25, 2020 06:31
[2020-03-25] MEDS ORDERED: NS 100 ML (IVPB) BAG IV ONE (07:00)
[2020-03-25] MEDS ORDERED: IOHEXOL 350 MG/ML 100 ML (OMNIPAQUE 350) VIAL IV ONE (07:00)
--- NOTE | 2020-03-25 07:10 | NUR ---
PT OFF FLOOR AT THIS TIME AND UNABLE TO DRAW ABG AT THIS TIME..
[2020-03-25] MEDS: RT-ALBUTEROL/IPRATROPIUM 3 ML (DUONEB) VIAL INH SCH ×5 (07:34→21:05)
[2020-03-25 07:47] LABS: ABG BASE EXCESS 2.6 MMOL/L (-2.5-2.5); ABG OXYGEN SATURATION 97 % (94-100); ABG PCO2 46 MMHG (35-45); ABG PH 7.39 (7.37-7.43); ABG PO2 89 MMHG (79-93); ABG TCO2 28.8 MMOL/L (21.0-31.0)
[2020-03-25] MEDS: methylPREDNISolone 40 MG/ML (Solu-MEDROL) VIAL IV SCH ×4 (07:49→23:58)
[2020-03-25] MEDS: LACTATED RINGERS 1,000 ML IV SCH (07:49)
[2020-03-25] MEDS: ACYCLOVIR 400 MG TABLET (ZOVIRAX) PO SCH ×2 (07:49→20:00)
[2020-03-25 07:56] LABS: ALLENS TEST YES-POS; INSPIRED O2 4; PATIENT TEMP 36.3; VENTILATOR NO
[2020-03-25 08:00] VITALS: BP 156/67
--- NOTE | 2020-03-25 08:36 | Diagnostic Imaging Report ---
PROCEDURE: CT chest with contrast only. TECHNIQUE: Multiple contiguous axial images were obtained through the chest after administration of intravenous contrast. Auto Exposure Controls were utilized during the CT exam to meet ALARA standards for radiation dose reduction. INDICATION: Shortness of breath There are no prior CT chest examinations available for comparison. This study is less than optimal as the pulmonaries were not well-opacified and consequently difficult to assess for a pulmonary embolus. There is no definite defect within the pulmonaries to indicate a pulmonary embolus. The aorta is not abnormally dilated. There is no sign of dissection. The heart size is within normal limits and there are dense coronary artery calcifications evident. The plain film examination of the chest performed on 03/24/2020 noted alveolar/interstitial pulmonary infiltrates involving the right lung base and left perihilar region. It is not certain whether these are chronic in nature or whether they are related to acute pneumonia/atelectasis. On this exam there are severe emphysematous changes involving both lungs. There are small patchy areas of increased density in the right lung base which could be related to mild pneumonia/atelectasis superimposed on the underlying chronic pulmonary disease. There is no evidence for pneumonia involving the left perihilar region. There is no significant pleural effusion identified. There is no mediastinal or hilar adenopathy noted. The esophagus does appear to be partially filled with particulate matter and debris. This of uncertain etiology. There is no evidence for an obstructive mass involving the esophagus. If further study is desired, then either endoscopy or an upper gastrointestinal exam would be recommended. The stomach is also partially filled with particulate matter and debris. The thyroid gland is generally unremarkable. The sections through the upper abdomen failed to show any sign of an acute abnormality. The bone windows are unremarkable for fracture or for destructive lesion. There is degenerative disc and bone disease throughout the thoracic and upper lumbar spine. IMPRESSION: 1. There are severe emphysematous changes involving both lungs. There may also be an element of mild pneumonia/atelectasis superimposed on the chronic pulmonary changes involving the right lung base. 2. There is no acute cardiopulmonary abnormality noted otherwise. However the pulmonary arteries were not well opacified and difficult to evaluate for a pulmonary embolus. 3. The esophagus is filled with particulate matter and debris. This of uncertain etiology. Recommendations as above. These results were discussed with Dr. Jasmeet Fry. Dictated by: Dictated on workstation # [id number]
[2020-03-25] MEDS ORDERED: OLODATEROL HCL IH SCH (09:00)
[2020-03-25 11:42] VITALS: BP 125/66
--- NOTE | 2020-03-25 12:48 | Progress Note - Hospitalist ---
Subjective HPI/CC On Admission Date Seen by Provider: Mar 25, 2020 Time Seen by Provider: 12:47 Pt is a 74yoCM with a PMH of COPD, DVT, and PNA who presented to the ER due to hypoxia. He follows with Dr Fry and scheduled an appointment with him for today due to 2 months long history of dyspnea. He normally wears 3lpm of oxygen and took it off to go in to his visit. He was found to have oxygen saturations in the 70s. His oxygen was increased to 5lpm which held him in the low 90s at rest but he dropped even with conversation. He was sent to the ER for evaluation. He was found to have a right sided pneumonia. Subjective/Events-last exam Pt reports feeling slightly better. Still SOB. Focused Exam Lactate Level 03/24/20 09:25: Lactic Acid Level 0.93 Objective Exam Vital Signs Vital Signs Date Time Temp Pulse Resp B/P (MAP) Pulse Ox O2 Delivery O2 Flow Rate FiO2 03/25/20 11:42 37.0 66 20 125/66 (85) 92 Room Air 4.00 03/24/20 13:17 40 Capillary Refill : Less Than 3 Seconds General Appearance: No Apparent Distress, Chronically ill Respiratory: No Respiratory Distress, Decreased Breath Sounds; No Wheezing Cardiovascular: Regular Rate, Rhythm, No Murmur Neurologic/Psychiatric: Alert, Oriented x3 Results/Procedures Lab Laboratory Tests 03/25/20 05:00 Patient resulted labs reviewed. Imaging: Reviewed Imaging Report Assessment/Plan Assessment and Plan Assess & Plan/Chief Complaint Acute on Chronic Hypoxic Respiratory Failure COPD RLL PNA Continue CAP coverage Pulm consulted, appreciate recs Titrate oxygen as able Continue Steroids CT chest today RVP and urine strep and legionella ordered Insomnia Continue melatonin H/o of DVT On Warfarin INR 1.6 Check in AM Diagnosis/Problems Diagnosis/Problems (1) COPD (chronic obstructive pulmonary disease) Status: Acute Qualifiers: COPD type: COPD with acute lower respiratory infection Qualified Codes: J44.0 - Chronic obstructive pulmonary disease with (acute) lower respiratory infection (2) Acute respiratory failure Status: Acute Qualifiers: Respiratory failure complication: hypoxia Qualified Codes: J96.01 - Acute respiratory failure with hypoxia (3) Insomnia Status: Chronic Qualifiers: Insomnia type: unspecified Qualified Codes: G47.00 - Insomnia, unspecified (4) Pneumonia Status: Acute Qualifiers: Pneumonia type: due to unspecified organism Laterality: right Lung l ocation: lower lobe of lung Qualified Codes: J18.1 - Lobar pneumonia, unspecified organism Clinical Quality Measures DVT/VTE Risk/Contraindication: Risk Factor Score Per Nursin RFS Level Per Nursing on Admit: 4+=Very High Contraindications-Pharm: Other *list below* Other: INR 1.6 ON WARFARIN BRIDGET TRAVIS MD Mar 25, 2020 12:48
[2020-03-25 16:00] VITALS: BP 144/64
[2020-03-25] MEDS ORDERED: warFARin 5 MG (COUMADIN) TAB PO SCH (18:00)
[2020-03-25] MEDS: TAMSULOSIN 0.4 MG (FLOMAX) CAP PO SCH (20:00)
[2020-03-25 20:13] VITALS: BP 146/68
[2020-03-25] MEDS: MELATONIN 10 MG TABLET PO PRN (21:44)
[2020-03-25] MEDS: LORazepam 0.5 MG (ATIVAN) TABLET PO PRN (21:44)
[2020-03-26] VITALS (7 sets, daily range): BP systolic 105–132; BP diastolic 46–74
[2020-03-26] MEDS: RT-ALBUTEROL/IPRATROPIUM 3 ML (DUONEB) VIAL INH SCH ×6 (01:39→23:57)
[2020-03-26] MEDS: LACTATED RINGERS 1,000 ML IV SCH ×2 (04:35→20:22)
[2020-03-26] MEDS: methylPREDNISolone 40 MG/ML (Solu-MEDROL) VIAL IV SCH ×4 (05:07→22:53)
[2020-03-26 05:32] LABS: HEMOGLOBIN 13.9 G/DL (13.3-17.7); MEAN PLATELET VOLUME 10.3 FL (7.4-10.4); RED CELL DISTRIBUTION WIDTH 13.8 % (10.0-14.5); WHITE BLOOD COUNT 11.6 10^3/uL (4.3-11.0)
[2020-03-26 05:45] LABS: INR 1.8 (0.8-1.4); PROTHROMBIN TIME PATIENT 21.4 SEC (12.2-14.7)
[2020-03-26 06:04] LABS: CHLORIDE 107 MMOL/L (98-107); POTASSIUM 4.5 MMOL/L (3.6-5.0); SODIUM 142 MMOL/L (135-145)
[2020-03-26 06:05] LABS: GLUCOSE 132 MG/DL (70-105)
[2020-03-26 06:07] LABS: CARBON DIOXIDE 26 MMOL/L (21-32)
[2020-03-26 06:09] LABS: CREATININE SERUM 0.91 MG/DL (0.60-1.30); GFR ESTIMATED > 60
[2020-03-26 06:10] LABS: BUN/CREATININE RATIO 21
--- NOTE | 2020-03-26 06:53 | Pulmonary Progress Note ---
Subjective Time Seen by a Provider: 06:48 Subjective/Events-last exam Pt appears to be doing better. Sepsis Event Evaluation Height, Weight, BMI Height: '" Weight: lbs. oz. kg; 28.60 BMI Method: Focused Exam Lactate Level 03/24/20 09:25: Lactic Acid Level 0.93 Exam Exam Vital Signs Date Time Temp Pulse Resp B/P (MAP) Pulse Ox O2 Delivery O2 Flow Rate FiO2 03/26/20 04:00 36.7 68 20 112/62 (79) 91 Nasal Cannula 4.00 03/26/20 01:39 91 Nasal Cannula 4.00 03/26/20 01:00 62 03/26/20 00:22 36.7 68 18 105/46 (65) 92 Nasal Cannula 4.00 03/25/20 21:05 92 Nasal Cannula 4.00 03/25/20 20:13 36.5 71 20 146/68 (94) 90 Nasal Cannula 4.00 03/25/20 20:00 Nasal Cannula 4.00 03/25/20 19:00 79 03/25/20 18:10 81 Room Air 03/25/20 16:00 36.7 76 22 144/64 (90) 92 Nasal Cannula 4.00 03/25/20 14:24 77 Room Air 03/25/20 13:17 76 03/25/20 11:42 37.0 66 20 125/66 (85) 92 Room Air 4.00 03/25/20 10:58 84 Room Air 03/25/20 08:00 92 Nasal Cannula 4.00 03/25/20 08:00 36.3 66 24 156/67 (96) 92 Nasal Cannula 4.00 03/25/20 07:34 94 Nasal Cannula 4.00 03/25/20 07:06 78 I & O 03/26/20 07:00 Intake Total 2200 ml Output Total 1050 ml Balance 1150 ml Height & Weight Height: '" Weight: lbs. oz. kg; 28.60 BMI Method: General Appearance: No Apparent Distress, Chronically ill HEENT: PERRL/EOMI, Pharynx Normal Neck: Non Tender, Supple Respiratory: No Respiratory Distress, Decreased Breath Sounds; No Wheezing Cardiovascular: Regular Rate, Rhythm, No Murmur Capillary Refill: Less Than 3 Seconds Extremity: Normal Range of Motion, Non Tender Neurologic/Psychiatric: Alert, Oriented x3 Skin: Other (hemosiderin staining of bilateral lower extremities- L>R- pt reports chronic) Results Lab Laboratory Tests 03/24/20 09:11 03/25/20 05:00 03/26/20 05:15 Assessment/Plan Assessment/Plan Acute on Chronic Respiratory Failure -Echo -pending -Check urine strep and legionella ag - neg -Check procalcitonin COPDAE -Solumedrol -Duonebs very severe oxygen dependent COPD RLL PNA Continue Abx H/o of DVT On Warfarin INR 1.6 FENG HUANG DO Mar 26, 2020 06:53
[2020-03-26] MEDS: ACYCLOVIR 400 MG TABLET (ZOVIRAX) PO SCH ×2 (08:19→20:22)
[2020-03-26] MEDS: ADVAIR HFA 115/21 MCG INHALER 8 GM IH SCH ×2 (10:27→19:23)
--- NOTE | 2020-03-26 12:45 | Progress Note - Hospitalist ---
Subjective HPI/CC On Admission Date Seen by Provider: Mar 26, 2020 Time Seen by Provider: 12:38 Pt is a 74yoCM with a PMH of COPD, DVT, and PNA who presented to the ER due to hypoxia. He follows with Dr Fry and scheduled an appointment with him for today due to 2 months long history of dyspnea. He normally wears 3lpm of oxygen and took it off to go in to his visit. He was found to have oxygen saturations in the 70s. His oxygen was increased to 5lpm which held him in the low 90s at rest but he dropped even with conversation. He was sent to the ER for evaluation. He was found to have a right sided pneumonia. Subjective/Events-last exam Pt reports doing better. Breathing improved. No complaints. Focused Exam Lactate Level 03/24/20 09:25: Lactic Acid Level 0.93 Objective Exam Vital Signs Vital Signs Date Time Temp Pulse Resp B/P (MAP) Pulse Ox O2 Delivery O2 Flow Rate FiO2 03/26/20 11:31 36.8 71 18 115/49 (71) 92 Nasal Cannula 4.00 03/24/20 13:17 40 Capillary Refill : Less Than 3 SecondsLess Than 3 Seconds General Appearance: No Apparent Distress, WD/WN Respiratory: Lungs Clear, No Accessory Muscle Use, No Respiratory Distress Cardiovascular: Regular Rate, Rhythm, No Murmur Gastrointestinal: Normal Bowel Sounds, Non Tender, Soft Neurologic/Psychiatric: Alert, Oriented x3 Results/Procedures Lab Laboratory Tests 03/26/20 05:15 Patient resulted labs reviewed. Imaging: Reviewed Imaging Report Assessment/Plan Assessment and Plan Assess & Plan/Chief Complaint Acute on Chronic Hypoxic Respiratory Failure COPD RLL PNA Continue CAP coverage Pulm consulted, appreciate recs Titrate oxygen as able, back to baseline Needs to ambulate Continue Steroids CT chest shows severe emphysematous changes RVP and urine strep and legionella ordered Insomnia Continue melatonin H/o of DVT On Warfarin INR 1.8 Diagnosis/Problems Diagnosis/Problems (1) COPD (chronic obstructive pulmonary disease) Status: Acute Qualifiers: COPD type: COPD with acute lower respiratory infection Qualified Codes: J44.0 - Chronic obstructive pulmonary disease with (acute) lower respiratory infection (2) Acute respiratory failure Status: Acute Qualifiers: Respiratory failure complication: hypoxia Qualified Codes: J96.01 - Acute respiratory failure with hypoxia (3) Insomnia Status: Chronic Qualifiers: Insomnia type: unspecified Qualified Codes: G47.00 - Insomnia, unspecified (4) Pneumonia Status: Acute Qualifiers: Pneumonia type: due to unspecified organism Laterality: right Lung location: lower lobe of lung Qualified Codes: J18.1 - Lobar pneumonia, unspecified organism Clinical Quality Measures DVT/VTE Risk/Contraindication: Risk Factor Score Per Nursin RFS Level Per Nursing on Admit: 4+=Very High Contraindications-Pharm: Other *list below* Other: INR 1.6 ON WARFARIN BRIDGET TRAVIS MD Mar 26, 2020 12:45
--- NOTE | 2020-03-26 13:14 | NUR ---
CM/SS: Visited with pt as to the plan for discharge Plan: Pt will return home with no identified services. Summary: Pt reports he lives in [place], [place] Pt reports he was referred to the hospital. Pt shares his helps him at home and that he is retired and does not need any help in the home. Pt reports he has never had home care and does not need it at this time. Pt reports he has oxygen at home and it runs 2 to 4 liters. He has cane, and other stuff at the home. Pt overall is pleasant and reports he will be ok upon discharge. He thanks this worker for visiting.
[2020-03-26] MEDS: warFARin 5 MG (COUMADIN) TAB PO SCH (18:20)
[2020-03-26] MEDS: MELATONIN 10 MG TABLET PO PRN (20:21)
[2020-03-26] MEDS: LORazepam 0.5 MG (ATIVAN) TABLET PO PRN (20:22)
[2020-03-26] MEDS: TAMSULOSIN 0.4 MG (FLOMAX) CAP PO SCH (20:24)
[2020-03-27] MEDS: RT-ALBUTEROL/IPRATROPIUM 3 ML (DUONEB) VIAL INH SCH ×3 (02:11→10:22)
[2020-03-27 04:30] VITALS: BP 128/65
--- NOTE | 2020-03-27 06:21 | Pulmonary Progress Note ---
Subjective Time Seen by a Provider: 06:17 Subjective/Events-last exam No complications noted Sepsis Event Evaluation Height, Weight, BMI Height: '" Weight: lbs. oz. kg; 28.60 BMI Method: Focused Exam Lactate Level 03/24/20 09:25: Lactic Acid Level 0.93 Exam Exam Vital Signs Date Time Temp Pulse Resp B/P (MAP) Pulse Ox O2 Delivery O2 Flow Rate FiO2 03/27/20 04:30 36.7 70 18 128/65 (86) 91 Nasal Cannula 4.00 03/27/20 02:11 92 Nasal Cannula 4.00 03/27/20 01:00 80 03/26/20 23:57 94 Nasal Cannula 4.00 03/26/20 23:48 37.2 76 20 132/74 (93) 94 Nasal Cannula 4.00 03/26/20 20:30 94 Nasal Cannula 4.00 03/26/20 19:45 37.0 73 18 128/61 (83) 91 Nasal Cannula 4.00 03/26/20 19:18 92 Nasal Cannula 4.00 03/26/20 19:00 84 03/26/20 15:56 36.8 86 22 126/56 (79) 91 Nasal Cannula 4.00 03/26/20 14:08 92 Nasal Cannula 4.00 03/26/20 13:02 84 03/26/20 11:31 36.8 71 18 115/49 (71) 92 Nasal Cannula 4.00 03/26/20 10:27 95 Nasal Cannula 4.00 03/26/20 10:27 95 Nasal Cannula 4.00 03/26/20 08:00 36.8 65 20 129/64 (85) 93 Nasal Cannula 4.00 03/26/20 08:00 Nasal Cannula 4.00 03/26/20 07:02 68 03/26/20 06:52 91 Nasal Cannula 4.00 I & O 03/27/20 07:00 Intake Total 2840 ml Output Total 3150 ml Balance -310 ml Height & Weight Height: '" Weight: lbs. oz. kg; 28.60 BMI Method: General Appearance: No Apparent Distress, WD/WN HEENT: PERRL/EOMI, Pharynx Normal Neck: Non Tender, Supple Respiratory: Lungs Clear, No Accessory Muscle Use, No Respiratory Distress Cardiovascular: Regular Rate, Rhythm, No Murmur Capillary Refill: Less Than 3 Seconds Extremity: Normal Range of Motion, Non Tender Neurologic/Psychiatric: Alert, Oriented x3 Skin: Other (hemosiderin staining of bilateral lower extremities- L>R- pt reports chronic) Results Lab Laboratory Tests 03/26/20 05:15 Assessment/Plan Assessment/Plan Acute on Chronic Respiratory Failure -Echo -pending -Check procalcitonin COPDAE -Solumedrol -- change to prednisone taper -Duonebs Very severe oxygen dependent COPD H/o of DVT On Warfarin FENG HUANG DO Mar 27, 2020 06:21
[2020-03-27] MEDS: ADVAIR HFA 115/21 MCG INHALER 8 GM IH SCH (06:47)
[2020-03-27] MEDS ORDERED: predniSONE 10 MG TAB PO SCH (07:00)
[2020-03-27 08:00] VITALS: BP 138/66
[2020-03-27] MEDS: ACYCLOVIR 400 MG TABLET (ZOVIRAX) PO SCH (08:46)
[2020-03-27] MEDS ORDERED: PRED10TA22 PO (10:54)
--- NOTE | 2020-03-27 10:57 | Discharge Inst-Simple/Standard ---
Discharge Inst-Standard Discharge Medications New, Converted or Re-Newed RX: RX on Chart Patient Instructions/Follow Up Plan of Care/Instructions/FU: Please continue to take your medications as written. Please follow up with your primary care doctor to followup this hospital stay and with Dr Fry in 2 weeks. Activity as Tolerated: Yes Discharge Diet: No Restrictions Return to The Hospital For: Chest pain, shortness of breath, fever, increasing oxygen requirement, confusion, if you feel you are getting worse. BRIDGET TRAVIS MD Mar 27, 2020 10:57
--- NOTE | 2020-03-27 11:02 | Discharge Summary ---
Diagnosis/Chief Complaint Date of Admission Mar 24, 2020 at 11:34 Date of Discharge Discharge Date: Mar 27, 2020 Admission Diagnosis Acute on Chronic Hypoxic Respiratory Failure Primary Care Discharge Diagnosis (1) COPD (chronic obstructive pulmonary disease) Status: Acute (2) Acute respiratory failure Status: Acute (3) Insomnia Status: Chronic (4) Pneumonia Status: Acute Discharge Summary Discharge Physical Exam Allergies: Coded Allergies: No Known Drug Allergies (Unverified , 03/24/20) Vitals & I&Os Vital Signs Date Time Temp Pulse Resp B/P (MAP) Pulse Ox O2 Delivery O2 Flow Rate FiO2 03/27/20 11:51 36.5 75 20 124/62 91 Nasal Cannula 4.00 03/24/20 13:17 40 General Appearance: No Apparent Distress, Chronically ill Respiratory: Lungs Clear, No Respiratory Distress Cardiovascular: Regular Rate, Rhythm, No Murmur Neurologic/Psychiatric: Alert, Oriented x3 Hospital Course Pt was admitted due to acute on chronic respiratory failure from pneumonia. He was treated with IV abx and did well. Steroids were added as well given severe emphysema. Dr Fry was consulted. He had an otherwise uneventful hospital stay and was discharged ciaran in stable condition to follow up with his primary care doctor and Dr Fry. Labs (last 24 hrs) Microbiology 03/24/20 Blood Culture - Preliminary, Resulted No growth 03/24/20 Urine Culture - Final, Complete NO GROWTH Patient resulted labs reviewed. Imaging: Reviewed Imaging Report Discussion & Recommendations Discharge Planning: >30 minutes discharge planning Discharge Home Medications: Active Scripts Active Prednisone 10 Mg Tab.ds.pk 10 Mg PO DAILY Take 6 tabs(60mg)daily,decrease by 1 tab(10mg)every other day. Reported Acyclovir 400 Mg Tablet 400 Mg PO BID Melatonin 5 Mg Tab.subl 5 Mg SL 0000 PRN Melatonin 5 Mg Tab.subl 5 Mg SL HS Vitamin B-12 (Cyanocobalamin) 100 Mcg Tablet 100 Mcg PO DAILY Vitamin D3 (Cholecalciferol (Vitamin D3)) 25 Mcg Capsule 25 Mcg PO DAILY Vitamin C (Ascorbic Acid) 250 Mg Tab 250 Mg PO DAILY Albuterol Sulfate 2.5 Mg/0.5 Ml Vial.neb 2.5 Mg INH Q6H PRN Artificial Tears Drops (Glycerin/Propylene Glycol) 30 Ml Drops 1 Drop OU QID Striverdi Respimat (Olodaterol HCl) 4 Gm Mist.inhal 2 Puff IH DAILY Warfarin Sodium 5 Mg Tablet 7.5 Mg PO SUN,MON,WED,CHASTITY,SAT Warfarin Sodium 5 Mg Tablet 5 Mg PO ,TUE Flomax (Tamsulosin HCl) 0.4 Mg Cap 0.4 Mg PO HS Ativan (Lorazepam) 0.5 Mg Tablet 0.5 Mg PO HS PRN Instructions to patient/family Please see electronic discharge instructions given to patient. Clinical Quality Measures DVT/VTE Risk/Contraindication: Risk Factor Score Per Nursin RFS Level Per Nursing on Admit: 4+=Very High Contraindications-Pharm: Other *list below* Other: INR 1.6 ON WARFARIN Problem Qualifiers (1) COPD (chronic obstructive pulmonary disease): COPD type: COPD with acute lower respiratory infection Qualified Codes: J44.0 - Chronic obstructive pulmonary disease with (acute) lower respiratory infection (2) Acute respiratory failure: Respiratory failure complication: hypoxia Qualified Codes: J96.01 - Acute respiratory failure with hypoxia (3) Insomnia: Insomnia type: unspecified Qualified Codes: G47.00 - Insomnia, unspecified (4) Pneumonia: Pneumonia type: due to unspecified organism Laterality: right Lung location: lower lobe of lung Qualified Codes: J18.1 - Lobar pneumonia, unspecified organism BRIDGET TRAVIS MD Mar 27, 2020 11:02
--- NOTE | 2020-03-27 11:35 | NUR ---
CM/SS: Follow up on discharge plan -Pt has requested that all new scripts be faxed to [facility] - . Script received and faxed to [facility]. Confirmation received. Pt will return home with not identified services.
[2020-03-27 11:45] VITALS: BP 124/62
[2020-03-27 11:51] VITALS: BP 124/62
[2020-03-27] MEDS ORDERED: RT-ALBUTEROL/IPRATROPIUM 3 ML (DUONEB) VIAL ONE (14:20)
== END 2020-03-27 13:00 | disposition home or self-care (01) | DRG 193 ==
LOC: ER 08:54 → 4TH 11:34
PROVIDERS: ADMIT Family Medicine; ATTEND Family Medicine
DX: J18.9 Pneumonia, unspecified organism (principal); J96.21 Acute and chronic respiratory failure with hypoxia; J43.9 Emphysema, unspecified; G47.30 Sleep apnea, unspecified; G47.00 Insomnia, unspecified; F41.9 Anxiety disorder, unspecified; N40.0 Benign prostatic hyperplasia without lower urinary tract symptoms; Z86.718 Personal history of other venous thrombosis and embolism; Z99.81 Dependence on supplemental oxygen; Z79.01 Long term (current) use of anticoagulants; Z87.891 Personal history of nicotine dependence
CPT/HCPCS: 36415; 36600; 71045; 71260; 80048; 80053; 81000; 82805; 83605; 83880; 84145; 85007; 85025; 85027; 85610; 85730; 87040; 87088; 87449; 87899; 93306; 94640; 94664; 94760

== ENCOUNTER → 2020-04-22 | Outpatient (CLI) | payer OTHER ==
[~2020-04-22] VITALS: Ht 187 cm; Wt 101.0 kg
[~2020-04-22] MED LIST: ACYC400T PO; ALB0.5V INH; C250T PO; CHOL100048 PO; CYAN100T3 PO; GLYC30DR4 OU; LORA-404 PO; MELA5TAB3 SL; MIRT45TA75 PO; OLOD4MIS2 IH; PRED10TA22 PO; REGADENOSON 0.4 MG/5 ML SYR (LEXISCAN) IV ONE; TMSL.4C PO; WARF-48 PO
[2020-04-22] MEDS: CATHETER FLUSH 10 ML SYR IV PRN ×2 (11:20→11:59)
[2020-04-22 11:58] VITALS: BP 141/81
--- NOTE | 2020-04-22 16:13 | STRESS TEST ---
DATE OF SERVICE: 04/22/2020 RESTING AND POST REGADENOSON TECHNETIUM-99M TETROFOSMIN SPECT CT IMAGING PRIMARY PHYSICIAN: Dr. Pretty. CLINICAL DIAGNOSES: Shortness of breath, abnormal electrocardiogram. Baseline images were carried out after injection of 10.6 mCi of technetium-99m Tetrofosmin. This was followed by 0.4 mg regadenoson and 31 mCi of technetium-99m Tetrofosmin for stress imaging. The electrocardiogram showed sinus rhythm at baseline and this did not change significantly with the regadenoson infusion. The patient tolerated the procedure well. Review of images at rest and following stress does not indicate any significant perfusion defects consistent with myocardial ischemia or infarction. Gated images show normal global left ventricular systolic function with normal regional wall motion. Left ventricular ejection fraction is calculated to be 69%. Left ventricular end diastolic volume is 59 mL. TID is absent (1.02). CONCLUSIONS: 1. No evidence of any significant myocardial ischemia or infarction on this study. 2. Normal regional wall motion. 3. Normal global left ventricular systolic function with a calculated ejection fraction of 69%. Job ID: [id number] DocumentID: [id number] Dictated Date: 04/22/2020 13:40:33 Sales Associate Fishing Date: 04/22/2020 16:11:05 Dictated By: NEIL PRETTY MD, MA, FACP, FACC,
== END ==
LOC: CARD 10:42
PROVIDERS: ATTEND Internal Medicine Cardiovascular Disease
DX: J44.9 Chronic obstructive pulmonary disease, unspecified (principal); I27.21 Secondary pulmonary arterial hypertension; R94.31 Abnormal electrocardiogram [ECG] [EKG]
CPT/HCPCS: 78452; 93017; A9502

== ENCOUNTER → 2020-05-05 | Outpatient (CLI) | payer OTHER ==
[~2020-05-05] MED LIST changes: -REGADENOSON 0.4 MG/5 ML SYR (LEXISCAN) IV ONE
--- NOTE | 2020-05-05 12:13 | Diagnostic Imaging Report ---
HISTORY: Shortness of breath COMPARISON: 03/24/2020 TECHNIQUE: 2 views of the chest FINDINGS: There is marked lucency in the upper right lung, consistent with the prior study and representing large bullous disease. There also appears to be hyperlucency in the left lung to lesser degree. There are heterogeneous airspace opacities in the left lung base, which appears stable. No new consolidation is seen. There is no pleural effusion or pneumothorax. The cardiac silhouette is stable in size. There is flattening of the diaphragm. IMPRESSION: 1. Chronic findings in the lungs, including bullous disease and COPD. No new consolidation is seen. Dictated by: Dictated on workstation # [id number]
== END ==
LOC: RAD 10:00
PROVIDERS: ATTEND Nurse Practitioner Family
DX: J44.9 Chronic obstructive pulmonary disease, unspecified (principal); J18.9 Pneumonia, unspecified organism; L13.9 Bullous disorder, unspecified
CPT/HCPCS: 71046

== ENCOUNTER → 2020-05-09 | Outpatient (CLI) | payer OTHER ==
[~2020-05-09] MED LIST changes: +RT-ALBUTEROL SULF 2.5 MG/3 ML PRE-MIX VIAL INH ONE
--- NOTE | 2020-05-09 11:34 | NUR ---
Pt did not perform O2 walk test today due to current health status; pt's feet are very swollen, had to wear open toe shoes due to swelling. When pt arrived for PFT test, he was moderate to severe SOA, he states he has been that way for past 2 months. Due to current hospital protocols requiring all pts to wear face mask in hallway, test would be more difficult for him to perform than under normal circumstances. Pt is to see ordering physician for follow up and to speak with him about performing walk at a different time when pt is feeling better. Addendum: 05/09/20 at 1149 by STEPHANIE ARTEAGA RT Pt was also brought from registration in a wheel chair, due to current health status (Feet swelling and SOA); I helped pt back to his car with wheel chair as well after PFT.
== END ==
LOC: RT 10:24
PROVIDERS: ATTEND Nurse Practitioner Family
DX: J44.9 Chronic obstructive pulmonary disease, unspecified (principal); R13.10 Dysphagia, unspecified; Z87.891 Personal history of nicotine dependence
CPT/HCPCS: 94060; 94726; 94729

== ENCOUNTER 2020-07-18 05:33 | Outpatient (RCR) | payer OTHER ==
[~2020-07-18] VITALS: Ht 177.8 cm; Wt 102.3 kg
[~2020-07-18 05:33] MED LIST changes: +ASCO250T16 PO; -C250T PO; -CYAN100T3 PO; +CYAN100T37 PO; -RT-ALBUTEROL SULF 2.5 MG/3 ML PRE-MIX VIAL INH ONE
[2020-07-18] MEDS ORDERED: GABA-486 PO (09:32)
[2020-07-18] MEDS ORDERED: MULT-1030 PO (09:32)
[2020-07-18] MEDS ORDERED: MIRT30TA6 PO (09:32)
[2020-07-18] MEDS ORDERED: PRED10TA22 PO (09:32)
--- NOTE | 2020-07-18 17:41 | NUR ---
Notified Dr Stout and Brook of patients positive COVID test. Will reschedule Colonoscopy. Attmpted to reach patients. Will continue to try and reach him.
--- NOTE | 2020-07-18 18:03 | NUR ---
NOtified patient of positive COVID test. Explained isolation and quarantine. Answered questions.
== END 2020-07-18 09:54 | disposition home or self-care (01) ==
LOC: PREOP 05:33
PROVIDERS: ATTEND Surgery
DX: Z01.812 Encounter for preprocedural laboratory examination (principal); Z12.11 Encounter for screening for malignant neoplasm of colon; U07.1 COVID-19; R13.10 Dysphagia, unspecified
CPT/HCPCS: 87635

== ENCOUNTER 2020-08-08 05:35 | Outpatient (RCR) | payer OTHER ==
[~2020-08-08] VITALS: Ht 177.8 cm; Wt 102.7 kg
[~2020-08-08 05:35] MED LIST changes: +GABA-486 PO; +MIRT30TA6 PO; +MULT-1030 PO
[2020-08-12] MEDS ORDERED: PANT40TA2 PO (11:56)
== END 2020-08-08 09:47 | disposition home or self-care (01) ==
LOC: PREOP 05:35
PROVIDERS: ATTEND Surgery
DX: Z01.812 Encounter for preprocedural laboratory examination (principal); Z20.828 Contact with and (suspected) exposure to other viral communicable diseases
CPT/HCPCS: 87635

== ENCOUNTER 2020-08-12 08:34 | Day surgery (SDC) | payer OTHER ==
[~2020-08-12] VITALS: Ht 177.8 cm; Wt 102.7 kg
[2020-08-12 08:40] VITALS: BP 138/78
[2020-08-12] MEDS ORDERED: LACTATED RINGERS 1,000 ML IV ONE ×2 (08:40)
[2020-08-12] MEDS ORDERED: HURRICAINE EXT TUBE (BENZOCAINE) XX PRN (08:45)
[2020-08-12] MEDS ORDERED: PROPOFOL INJECTION 0 ML IV ONE (10:14)
[2020-08-12] MEDS ORDERED: MIDAZOLAM 2 MG/2 ML (VERSED) VIAL ONE (10:14)
[2020-08-12] MEDS ORDERED: HURRICAINE EXT TUBE (BENZOCAINE) ONE (10:25)
[2020-08-12] MEDS ORDERED: PROPOFOL INJECTION 50 ML IV ONE (11:50)
--- NOTE | 2020-08-12 11:54 | Progress Note-Post Operative ---
Post-Operative Progess Note Surgeon (s)/Crown Buffer (s) Surgeon RAIMUNDO KEN DO Crown Buffer: na Pre-Operative Diagnosis dysphagia, screening colonoscopy Post-Operative Diagnosis gastritis, colon polyps x 4, diverticulosis Procedure & Operative Findings Date of Procedure 08/12/20 Procedure Performed/Findings egd c biopsies, colonoscopy c hot bx polypectomy x 3 and snare polypectomy x 1 Anesthesia Type per subway train operator Estimated Blood Loss Estimated blood loss (mL): scant Specimens/Packing Specimens Removed antrum, body, ge, colon polyps RAIMUNDO KEN DO Aug 12, 2020 11:54
[2020-08-12 11:56] VITALS: BP 135/81
[2020-08-12] MEDS ORDERED: PANT40TA2 PO (11:56)
--- NOTE | 2020-08-12 11:56 | Discharge Inst-Simple/Standard ---
Discharge Inst-Standard Patient Instructions/Follow Up Plan of Care/Instructions/FU: restart coumadin(warfarin) in 5 days. Girish 2 weeks Activity as Tolerated: Yes Discharge Diet: Regular Diet (high fiber) RAIMUNDO KEN DO Aug 12, 2020 11:56
[2020-08-12 12:01] VITALS: BP 149/79
[2020-08-12 12:05] VITALS: BP 149/82
--- NOTE | 2020-08-12 12:11 | Anesthesia-General Post-Op ---
MAC Patient Condition Mental Status/LOC: Same as Preop Cardiovascular: Satisfactory Nausea/Vomiting: Absent Respiratory: Satisfactory Pain: Controlled Complications: Absent Post Op Complications Complications None Follow Up Care/Instructions Patient Instructions None needed. Anesthesiology Discharge Order Discharge Order Patient is doing well, no complaints, stable vital signs, no apparent adverse anesthesia problems. No complications reported per nursing. HARRISON TERRY CRNA Aug 12, 2020 12:11
[2020-08-12 12:35] VITALS: BP 144/86
[2020-08-12] MEDS ORDERED: FAMO-119 PO (12:39)
[2020-08-12 12:55] VITALS: BP 144/86
--- NOTE | 2020-08-12 14:16 | OPERATIVE REPORT ---
DATE OF SERVICE: 08/12/2020 PREOPERATIVE DIAGNOSIS: Dysphagia, screening colonoscopy. POSTOPERATIVE DIAGNOSES: Gastritis, colon polyps x4 and diverticulosis. PROCEDURE: EGD with biopsies, colonoscopy with hot biopsy polypectomy x3 and snare polypectomy x1. SURGEON: Raimundo Stout DO ANESTHESIA: Per [employer]. ESTIMATED BLOOD LOSS: Scant. COMPLICATIONS: None. SPECIMENS: Antrum, body, GE junction and colon polyp. INDICATIONS: The patient is a 74-year-old male with dysphagia symptoms and had an abnormal CT scan of the distal esophagus. He also needed screening colonoscopy. He understands risks and benefits of procedure and wished to proceed with procedure. Consent was signed in the chart. DESCRIPTION OF PROCEDURE: The patient was taken to the endoscopy suite, placed in left lateral recumbent position. Timeout was performed. Scope was inserted in mouth, down the esophagus, stomach and into the duodenum without difficulty. There were no polyps, masses or ulcerations within the duodenum. Scope was slowly retracted back into the stomach where it was further insufflated. Gastritis appearance. Biopsy of the antrum and body were obtained. Scope was retroflexed noting no other pathology. Scope was returned to its normal position, slowly withdrawn to distal esophagus. Biopsy of the GE junction was obtained. Scope was then slowly retracted back until completely removed, noting no other pathology. Digital rectal exam was performed. There were no palpable polyps, masses or ulcerations. Scope was inserted in the rectum and advanced all the way to cecum with minimal difficulty. Prep was adequate with irrigation and suction. Scope was then slowly retracted back. There were no polyps, masses or ulcerations within the cecum. In the ascending colon, there were 2 polyps present, which hot biopsy polypectomy was performed. Scope was continuously slowly retracted back. There were no polyps, masses or ulcerations in the remainder of the ascending, transverse colon. In the descending colon, a small polyp was present, which hot biopsy polypectomy was performed. There was some diverticulosis throughout the descending and sigmoid colon. In the sigmoid colon, there was also a slightly larger polyp, which was probably about 8 mm in diameter. Snare polypectomy was performed. Scope was then slowly retracted back. Scope was retroflexed noting no other pathology. In the rectum, scope was returned to its normal position, slowly withdrawn until completely removed. The patient tolerated procedure well without any complications. He was taken to recovery room in stable condition. RECOMMENDATIONS: The patient will follow up in the office to discuss pathology results. The patient will be started on Protonix 40 mg daily. Recommend high fiber diet due to diverticulosis. The patient will need repeat colonoscopy on as needed basis. Job ID: [id number] DocumentID: [id number] Dictated Date: 08/12/2020 11:59:34 Product Strategy Director Date: 08/12/2020 14:15:39 Dictated By: RAIMUNDO STOUT DO
== END 2020-08-12 12:55 | disposition home or self-care (01) ==
LOC: ENDO 08:34
PROVIDERS: ATTEND Surgery
DX: Z12.11 Encounter for screening for malignant neoplasm of colon (principal); D12.2 Benign neoplasm of ascending colon; D12.4 Benign neoplasm of descending colon; D12.5 Benign neoplasm of sigmoid colon; K57.30 Diverticulosis of large intestine without perforation or abscess without bleeding; K29.70 Gastritis, unspecified, without bleeding; K20.90 Esophagitis, unspecified without bleeding; I10 Essential (primary) hypertension; J44.9 Chronic obstructive pulmonary disease, unspecified; I27.20 Pulmonary hypertension, unspecified; I20.9 Angina pectoris, unspecified; E66.9 Obesity, unspecified; Z68.32 Body mass index [BMI] 32.0-32.9, adult; Z79.899 Other long term (current) drug therapy
CPT/HCPCS: 88305

== ENCOUNTER → 2021-08-18 | Outpatient (CLI) | payer OTHER ==
[~2021-08-18] MED LIST changes: -ACYC400T PO; +ACYC400T21 PO; +CATHETER FLUSH 10 ML SYR IV PRN; +FAMO-119 PO; +HOLD METFORMIN - RECEIVED CONTRAST 20 ML VIAL IV SCH; +IOHEXOL 350 MG/ML 100 ML (OMNIPAQUE 350) VIAL IV ONE; +MIRT-69 PO; -MIRT30TA6 PO; +NS 100 ML (IVPB) BAG IV ONE; +PANT40TA2 PO
[2021-08-18 12:17] LABS: CREATININE SERUM 0.8 MG/DL (0.60-1.30)
--- NOTE | 2021-08-18 13:28 | Diagnostic Imaging Report ---
PROCEDURE: CT chest with contrast only. TECHNIQUE: Multiple contiguous axial images were obtained through the chest after administration of intravenous contrast. Auto Exposure Controls were utilized during the CT exam to meet ALARA standards for radiation dose reduction. INDICATION: Abnormal findings on prior diagnostic imaging, cough. COMPARISON: 03/25/2020. FINDINGS: A borderline prominent right tracheobronchial lymph node is present measuring 1.1 cm in short dimension, not significantly changed from the prior examination. No new adenopathy within the chest. Scattered vascular calcifications are present. No aneurysmal dilatation of the thoracic aorta. No significant pericardial effusion. Stable chronic mild elevation of the right hemidiaphragm. Trace right-sided pleural effusion. No significant left pleural effusion. No saddle pulmonary embolus. Severe background emphysematous changes are again noted throughout the lungs bilaterally, greatest within the upper lobes. Large bullae are present, particularly within the right upper lobe. No pneumothorax. Calcified granuloma within the left upper lobe. Stable lobulated 0.8 cm pulmonary nodule within the left upper lobe. Bibasilar scarring and fibrosis is again seen. Slightly increased reticular and ground-glass opacities are identified within the right lower lobe when compared to the prior examination. Hypodensity within the superior pole of the right kidney, incompletely evaluated though not significantly changed since the prior examination. The visualized upper abdomen is otherwise unremarkable. No acute osseous abnormality with scattered osseous degenerative changes present. IMPRESSION: Severe background emphysematous changes and bulla formation with associated mild background chronic interstitial lung changes. Slightly increasing reticular and ground-glass opacities within the right lung base when compared to the prior examination with associated developing trace pleural fluid. This is favored to relate to mild infectious or inflammatory process superimposed upon the underlying chronic interstitial lung disease. Interval progression of fibrosis is an additional consideration. Follow-up CT of the chest in one year is recommended. Otherwise, similar examination. Dictated by: Dictated on workstation # [id number]
== END ==
LOC: RAD 12:45
PROVIDERS: ATTEND Nurse Practitioner Family
DX: J43.9 Emphysema, unspecified (principal); J84.10 Pulmonary fibrosis, unspecified; R91.8 Other nonspecific abnormal finding of lung field
CPT/HCPCS: 36415; 71260; 82565; 84520